=== PATIENT | male | born 1950 | race Caucasian/White ===

== ENCOUNTER → 2017-01-01 | Outpatient (CLI) | payer OTHER ==
[~2017-01-01] VITALS: Ht 170.2 cm; Wt 74.4 kg
[~2017-01-01] MED LIST: ADVAIR HFA120 INHAL1 IH; CENTRUM SILVER1 EAC5 PO; COZAAR50 MG PO; FLONASE ALLERG9.9 ML BOTH NARES; HYDROCHLOROTHIA25 MG PO; INCRUSE ELLI62.5 MCG IH; LIDODERM 5% P1 PATCH TD; LIPITOR20 MG PO; NEXIUM40 MG PO; PERCOCET 10/1 TABLET PO; PROAIR HFA8.5 GM IH; RELAFEN750 MG PO; SINGULAIR10 MG PO; TYLENOL WITH C1 EACH PO; UNIPHYL PO; VIAGRA50 MG PO; VITAMIN D31000 UNIT PO
[2017-01-01 14:40] LABS: HEMATOCRIT 36.3 % (38.0-50.0); MCH 34.9 PG (29.0-34.0); MCHC 34.2 G/DL (30.0-36.0); MCV 102.3 FL (86-99); MEAN PLAT.VOLUME 9.5 uM^3 (9.0-12.4); PLATELET COUNT 187 K/uL (156-360); RBC DIS.WIDTH-CV 12.2 % (11.8-14.6); RBC DIS.WIDTH-SD 46.5 % (39-53); RED BLOOD COUNT 3.55 M/uL (4.00-5.50); WHITE BLOOD COUNT 4.6 K/uL (4.1-10.2)
[2017-01-01 14:55] LABS: PTT 28.2 SEC (25-37)
== END | disposition home or self-care (01) ==
LOC: AMB 12:44
PROVIDERS: Internal Medicine Pulmonary Disease
DX: R05 Cough (principal); B37.89 Other sites of candidiasis; J44.9 Chronic obstructive pulmonary disease, unspecified
CPT/HCPCS: 85027; 85610; 85730; 87070; 87116; 87205; 87206; 88108; J0461; J2175; J2250; J2310; J2550; J3010